=== PATIENT | female | born 1965 | race Caucasian/White ===

== ENCOUNTER → 2021-10-16 10:11 | Outpatient (BNVA) | payer SELFPAY | PROVIDERS: Visit Provider Nurse Practitioner | DX: J02.8 Acute pharyngitis due to other specified organisms (principal); B96.89 Other specified bacterial agents as the cause of diseases classified elsewhere | CPT/HCPCS: 87880 ==

== ENCOUNTER → 2021-11-11 10:44 | Outpatient (BNVA) | payer SELFPAY | PROVIDERS: Visit Provider Nurse Practitioner Family | DX: J02.8 Acute pharyngitis due to other specified organisms (principal); B96.89 Other specified bacterial agents as the cause of diseases classified elsewhere; J35.1 Hypertrophy of tonsils | CPT/HCPCS: 87071; 87880 ==

== ENCOUNTER → 2022-04-09 12:35 | Outpatient (BNVA) | payer MEDICAID, SELFPAY | PROVIDERS: PCP Physician Assistant; Visit Provider Registered Nurse Neonatal Intensive Care | DX: S82.842A Displaced bimalleolar fracture of left lower leg, initial encounter for closed fracture (principal); X58.XXXA Exposure to other specified factors, initial encounter | CPT/HCPCS: 73610 ==

== ENCOUNTER → 2022-04-12 13:32 | Outpatient (BNVA) | payer MEDICAID, SELFPAY | PROVIDERS: PCP Physician Assistant; Visit Provider Student in an Organized Health Care Education/Training Program | DX: S82.842A Displaced bimalleolar fracture of left lower leg, initial encounter for closed fracture (principal); W01.0XXA Fall on same level from slipping, tripping and stumbling without subsequent striking against object, initial encounter | CPT/HCPCS: 73610 ==

== ENCOUNTER 2022-04-18 08:11 | Day surgery (SDC) | payer MEDICAID, SELFPAY ==
[2022-04-17 09:35] VITALS: BMI 46.0
[2022-04-18] VITALS (16 sets, daily range): BP systolic 129–175; BP diastolic 76–113; PULSE 62–100; RESP 12–18; TEMP 36.1–36.8; O2SAT 94–100
--- NOTE | 2022-04-18 | SCC_ITS ---
Procedure done: Left distal fibula open reduction internal fixation Stress examination and interpretation of mini C arm fluoroscopic imaging 51 seconds of fluoroscopic guidance, for a cumulative dose of 1.07 mGy, was provided to Dr. Gunderson by the radiology department. C-arm images of the LEFT ankle were saved for the patient's permanent record. COMPAD
--- NOTE | 2022-04-18 07:01 | ANES.PREANE2 ---
Pre-Anesthetic Assessment Height/Weight: Height 1.68 m Weight 129.274 kg Preop Diagnosis: Left ankle fx Operation Date: 04/18/22 09:40 Proposed Procedures p LEFT ANKLE OPEN REDUCTION AND INTERNAL FIXATION WITH POSSIBLE SYNDESMOTIC FIXATION 20208, 88891,T14.8XXA(Left) - Aleksandr Gunderson DO Familial anesthetic complications: None Was Beta Jeanna taken within 24 hours: N/A Was Clonidine taken within 24 hours: N/A Social No alcohol and No tobacco Exam alert, oriented x 3, clear to auscultation bilaterally and regular rate & rhythm Airway Submandibular: within normal limits Cervical ROM: within normal limits Mallampati: Class II Dentition: full History/ROS No significant complaints Pulmonary None reported CV/HEM None reported None reported Hepatic None reported GI Gastroesophageal Reflux Disease (Well controlled ) Metabolic Morbid Obesity [facility] [place] None reported Left ankle fx Neuropsych None reported Anesthetic Plan ASA status: 2 Anesthesia: Anesthesia Evaluation, General and Regional (specify below) (Popliteal and adductor canal block for post op pain control ) Other: We discussed risk and benefits of general anesthesia including PONV, sore throat (sometimes severe), corneal abrasion, positioning and peripheral nerve injuries, life threatening allergic reaction, post operative ICU admission requiring prolonged intubation, stroke, heart attack, , and rare incidences of recall. Patient consents to proceed with general anesthesia. We discussed risk and benefits of nerve block for post op pain control including management of pain and titration of pain medications as signs/symptoms of nerve block wearing off begin to appear and/or prior bed. We discussed risk of failed nerve block, vascular injury or other vital structure injury, abscess/infection, LAST, and nerve injury. Plan general with popliteal block and adductor canal blocks for post op pain contro. Risk of > 500 ml blood loss (7ml/kg in children): No Medications/Allergies Home Medications Medication Instructions Recorded Confirmed Last Taken Type lisinopril 20 1 tab PO DAILY 04/17/22 04/17/22 Unknown History mg-hydrochlorothiazide 25 mg tablet Allergies Allergy/AdvReac Type Severity Reaction Status Date / Time ibuprofen Allergy Mild HIVES Verified 04/18/22 08:24 Penicillins Allergy ALGY-Rash Verified 04/18/22 08:24 [facility] Anesthesia Medical History Bimalleolar fracture of left ankle Social History Smoking and tobacco status: current every day smoker Data Anesthesia Cardiac Studies: No Data to Display
[2022-04-18] MEDS: sodium chloride 0.9% 1,000 ML 30 ML IV (08:47)
[2022-04-18] MEDS: acetaminophen 1,000 MG/100 ML PIGGYBACK 400 MG IV (08:48)
[2022-04-18] MEDS: fentaNYL 50 mcg/mL INJ 2mL IVP ×2 (09:05→11:25)
[2022-04-18] MEDS: clindamycin 600 MG/50 ML PREMIX 100 MG IV (09:44)
--- NOTE | 2022-04-18 09:45 | W.PM.OPSUD ---
Surgery/Procedure H&P Update DATE OF PROCEDURE: April 18, 2022 DATE H&P PERFORMED: 04/12/22 CHANGES TO PREVIOUS DOCUMENTATION: None PREOP DIAGNOSIS: Left bimalleolar ankle fracture PRIMARY INDICATION FOR PROCEDURE: Left bimalleolar ankle fracture PLANNED PROCEDURE: Operation Date: 04/18/22 09:40 Proposed Procedures p LEFT ANKLE OPEN REDUCTION AND INTERNAL FIXATION WITH POSSIBLE SYNDESMOTIC FIXATION 38662, [id number],T14.8XXA(Left) - Aleksandr Gunderson DO
--- NOTE | 2022-04-18 09:57 | ANES.PROC ---
Anesthesia Procedures Procedure/Date: 04/18/22 Nerve Block ^: Nerve Block 1: Main Anesthesia: general anesthesia Time Out Performed: Yes Consent: requested by attending/covering physician, from patient, risks and benefits reviewed and patient agrees to proceed Nerve block location: popliteal Anesthesia monitors applied: pulse oximetry, BP cuff and oxygen Nerve block position: semi sitting Anesthetic Used: ropivicaine 0.5% Amount of anesthesia used (mL): 20 Ultrasound used to: other (visualize and ID popliteal nerve) Nerve Stimulator Used?: No Interscalene/Femoral BLK: 4 stimuplex 21 g needle used for position and inplane approach, visualize local anesthetic spread and no vascular puncture identified Injection: neg aspiration of heme Patient Tolerated Procedure: well Complications: none Additional Comments: After time out sterile prep, using sterile technique, and using real time US guidance for target selection needle was inserted with real time visualization of needle entry and real time visualization of needle advancement toward intended target. Negative aspiration. LA injected incrementally with negative aspiration every 5 cc and real time US visualization of LA spread throughout procedure. Tolerated well. Image(s) saved. Nerve Block 2: Main Anesthesia: general anesthesia Time Out Performed: Yes Consent: requested by attending/covering physician, from patient and risks and benefits reviewed Nerve block location: adductor canal Anesthesia monitors applied: pulse oximetry, BP cuff and oxygen Anesthetic Used: ropivicaine 0.5% Amount of anesthesia used (mL): 14 Ultrasound used to: recognize landmarks and visualize and ID femerol nerve Nerve Stimulator Used?: No Interscalene/Femoral BLK: 4 stimuplex 21 g needle used for position and inplane approach, visualize local anesthetic spread and no vascular puncture identified Injection: neg aspiration of heme Patient Tolerated Procedure: well Complications: none Additional Comments: After time out sterile prep, using sterile technique, and using real time US guidance for target selection needle was inserted with real time visualization of needle entry and real time visualization of needle advancement toward intended target. Negative aspiration. LA injected incrementally with negative aspiration every 5 cc and real time US visualization of LA spread throughout procedure. Tolerated well. Image(s) saved.
--- NOTE | 2022-04-18 11:25 | PM.PACU ---
PACU note Narrative: Patient seen and evaluated in PACU. Toes are warm well perfused. Compartment soft compressible. Patient resting comfortably and pain controlled. DP pulse palpable. Rest of examination limited secondary to splint. Sensation intact to light touch to the toes. Patient wiggles toes. Exam: awake (See narrative for detailed exam) Disposition: discharged
--- NOTE | 2022-04-18 11:30 | P.OP_ITS ---
Brief Operative Note Date of procedure: 04/19/22 Pre-op diagnosis: Left bimalleolar ankle fracture Post-op diagnosis: same Procedure Done: Left distal fibula open reduction internal fixation Stress examination syndesmosis left ankle Interpretation of mini C-arm fluoroscopic imaging Surgeon: Aleksandr Gunderson Estimated blood loss (mL): 15 Complications: None Post-op Plan: Patient recover in PACU. Splint on and in place clean dry and intact. Patient will receive appropriate discharge directions as well as pain medication and DVT prophylaxis. Patient will follow-up in my office in 2 weeks. Keep splint on in place until follow-up. Condition: stable Disposition: same day Coding Level of Care Code Acute Supervisor Cell Efficiency for Mary Ellen Price
[2022-04-18] MEDS: HYDROcodone-acetaminophen 5-325 mg Tablet 1 TAB PO (12:24)
--- NOTE | 2022-04-18 14:07 | ANE.PACU2 ---
Inpatient post-anesthesia follow up: Airway intact: Yes Vital signs: Temperature 98.3 F Pulse Rate 67 Respiratory Rate 18 Blood Pressure 143/93 Pulse Oximetry 98 Oxygen Delivery Me thod Room Air Oxygen Flow Rate Fraction of Inspir ed Oxygen Hydration adequate: Yes Nausea and vomiting: No Pain level: 1 Mental status: Baseline
--- NOTE | 2022-04-19 06:34 | P.OP_ITS ---
Operative Report Date of procedure: April 19, 2022 Pre-op diagnosis: Preop Diagnosis Left ankle fx Post-op diagnosis: Left bimalleolar ankle fracture Post-op findings: Left bimalleolar ankle fracture see procedure note for details Procedure done: Left distal fibula open reduction internal fixation Stress examination and interpretation of mini C arm fluoroscopic imaging Implants: [place] lateral distal fibula plate 4 hole Nonlocking 3.5 screws x3 Locking 3.5 screws x4 Nonlocking 2.7 lag screw x1 Surgeon: Aleksandr Gunderson DO Estimated blood loss: 10 40 minutes IV fluids: See anesthesia record Complications: None Findings: See operative note Condition: stable Disposition: same day Brief History: Екатерина presents today as a pleasant 56-year-old female who sustained a left bimalleolar ankle fracture. She was seen and evaluated in the outpatient setting x-ray findings and exam consistent with preoperative diagnosis. She was stress examination in the office and found to have medial clear space widening. She does have a small avulsion of the medial malleolus as well as a displaced distal fibula fracture. Given her hip inherent instability of her ankle injury we discussed recommendations of left ankle open reduction internal fixation over closed treatment. At this point we had shared decision making about the risk benefits complications alternatives to each treatment choice as far as the risks with surgery which include make it better, make it worse, blood clot, infection, wound issues, painful hardware or further surgeries and with these understandings she agrees to proceed with surgical intervention. Consent was then obtained in office. Patient understands and agrees with current plan. All questions answered. Elects to proceed with surgery. Plan will be for left distal fibula open reduction internal fixation after this we will perform stress examination. Given the small bony fragment on the medial malleolus this does not appear to be fixable with any hardware and I feel this is more of a deltoid injury and possibly will ankle will only need ORIF of the distal fibula. However we will stress examine the left ankle after fixation to see if any further surgical intervention needed. Procedure: Patient seen evaluated in the preoperative suite. Consent was reviewed with patient. Correct extremity was then marked. Evaluated preoperative team. Seen by the anesthesia department once ready for surgery she was then taken back to the OR suite and placed on the OR table in supine position all bony prominences were well-padded a bump was placed under the ipsilateral hip. A nonsterile tourniquet applied to the left lower extremity. Patient underwent anesthesia per the anesthesia department. Once appropriately anesthetized patient's left lower extremity was then prepped and draped in standard orthopedic fashion. Final timeout performed. Patient received appropriate preoperative antibiotics Esmarch tourniquet was used exsanguinate the left lower extremity tourniquet inflated. A standard direct lateral incision centered over the fracture site a distal fibula was then made sharp scalpel through skin and subcutaneous tissue. Care to protect the superficial peroneal nerve. Once down to bone distally I then utilized an elevator along the distal fibula proximally with care to protect and not injure the SPN. Encountered fracture hematoma and fracture site of the distal fibula identified as a standard oblique fracture pattern that appeared likable with no significant areas of comminution. At this point a sharp scalpel excision was to identify the cortical edges and allowed an appropriate cortical leavitt for lag screw fixation. I did open book the fracture with a dental pick curette out any soft tissue interposition and subsequently utilized a reduction clamp to hold my reduction. Next I then placed a 2.7 mm lag screw in standard lag fashion from the anterior to posterior perpendicular fracture site. This was drilled measured appropriate length screw was placed with excellent purchase. Clamp was then removed and fracture was stable. Mini fluoroscopic C-arm was used throughout this case multiple orthogonal images showing anatomic reduction with methodist of fibular length and methodist of ankle mortise. Once her lag screw was then placed to utilize fluoroscopic C arm to select the appropriate length distal fibula locking plate. Selected a 4-hole Jose distal fibular anatomic locking plate. I then utilized olive wires to secure the plate to bone. First I started with a screw in the shaft just proximal to the fracture site to bring the plate to bone. This was appropriately drilled measured and appropriate length screw was then placed of fully threaded cortical screw. Next I then saw there was a small area of the distal fibula that was off the plate distally that was not brought down by the olive wire. I then drilled a unicortical fully threaded nonlocking screw to help compress the plate to bone. Care was made to not enter the lateral gutter with this cortical screw. This brought the plate to bone and I subsequently drilled and locked 3 locking screws around this. This completed my distal fixation. The distal olive wire was then subsequently removed. Next I then turned my attention proximally where I placed a single locking screw as well as my most proximal screw was drilled and placed a nonlocking screw. This secured me with 3 screws proximal to the fracture site as well as 4 screws distal to the fracture site with a lag screw creating a lag screw with neutralization plate technique. Final x-rays were then taken of AP ankle mortise as well as lateral showing appropriate anatomic reduction of the distal fibula fracture with excellent fixation. I then again held in ankle mortise view with mini C arm and then subsequently performed a cotton test as well as a external stress test. No evidence of medial clear space widening. The small frankie of medial malleolus that was noted did not have enough bone stock for fixation and did not aid in the ankle stability. As a result decision was made to leave this alone as the ankle was stable after stress test. Tourniquet was then deflated. Wound bed was thoroughly irrigated hemostasis adequate with electrocautery and pressure. Deep 2-0 Vicryl sutures were brought to bring fascia over the plate as well as then a running 2-0 Vicryl stitch and jessica for skin. Xeroform covered the incision 4 x 4's ABDs soft roll and a short leg posterior splint was then placed to the left lower extremity. Patient tolerated procedure without complications. She was awakened from anesthesia and taken to PACU in stable condition Position: Patient should be nonweightbearing to left lower extremity keep splint on in place until follow-up. Follow-up in 2 weeks. Given appropriate discharge instructions as well as pain medication. Patient does have allergy to aspirin we will give her a daily dose of Lovenox for DVT prophylaxis. Patient understands agrees current plan. All questions answered. She understands she has any questions he can contact the office. She will follow-up with me in 2 weeks.
== END 2022-04-18 12:42 | disposition home or self-care (01) ==
PROVIDERS: PCP Physician Assistant; Visit Provider Student in an Organized Health Care Education/Training Program
PROC: (CPT 27792; principal; 2022-04-18 09:30)
DX: S82.842A Displaced bimalleolar fracture of left lower leg, initial encounter for closed fracture (principal); K21.9 Gastro-esophageal reflux disease without esophagitis; F17.200 Nicotine dependence, unspecified, uncomplicated; E66.01 Morbid (severe) obesity due to excess calories; Z68.42 Body mass index [BMI] 45.0-49.9, adult; W01.0XXA Fall on same level from slipping, tripping and stumbling without subsequent striking against object, initial encounter; Z88.0 Allergy status to penicillin
CPT/HCPCS: 27792; 76000; C1713; J2704; J2795; J3010; J3490; J7030

== ENCOUNTER → 2022-05-07 10:18 | Outpatient (BNVA) | payer MEDICAID, SELFPAY | PROVIDERS: PCP Physician Assistant; Visit Provider Student in an Organized Health Care Education/Training Program | DX: S82.842A Displaced bimalleolar fracture of left lower leg, initial encounter for closed fracture (principal) | CPT/HCPCS: 73610; 99024 ==

== ENCOUNTER → 2022-06-04 10:05 | Outpatient (BNVA) | payer MEDICAID, SELFPAY | PROVIDERS: PCP Physician Assistant; Visit Provider Student in an Organized Health Care Education/Training Program | DX: T81.49XA Infection following a procedure, other surgical site, initial encounter (principal); S82.842D Displaced bimalleolar fracture of left lower leg, subsequent encounter for closed fracture with routine healing; W19.XXXD Unspecified fall, subsequent encounter | CPT/HCPCS: 73610; 99024 ==

== ENCOUNTER 2022-06-04 12:00 | Outpatient (CLI) | payer MEDICAID, SELFPAY | END 2022-06-04 12:01 | disposition home or self-care (01) | LOC: SPT 12:01 | PROVIDERS: PCP Physician Assistant; Visit Provider Student in an Organized Health Care Education/Training Program | DX: Z46.89 Encounter for fitting and adjustment of other specified devices (principal); S82.842D Displaced bimalleolar fracture of left lower leg, subsequent encounter for closed fracture with routine healing; X58.XXXD Exposure to other specified factors, subsequent encounter | CPT/HCPCS: 97760; 99024; L1902 ==

== ENCOUNTER → 2022-07-02 09:38 | Outpatient (BNVA) | payer MEDICAID, SELFPAY | PROVIDERS: PCP Physician Assistant; Visit Provider Student in an Organized Health Care Education/Training Program | DX: S82.842D Displaced bimalleolar fracture of left lower leg, subsequent encounter for closed fracture with routine healing (principal); X58.XXXD Exposure to other specified factors, subsequent encounter; L97.321 Non-pressure chronic ulcer of left ankle limited to breakdown of skin | CPT/HCPCS: 73610 ==

== ENCOUNTER → 2022-08-13 14:30 | Outpatient (BNVA) | payer MEDICAID, SELFPAY | PROVIDERS: PCP Physician Assistant; Visit Provider Student in an Organized Health Care Education/Training Program | DX: S99.922A Unspecified injury of left foot, initial encounter (principal); S82.842A Displaced bimalleolar fracture of left lower leg, initial encounter for closed fracture; T81.49XA Infection following a procedure, other surgical site, initial encounter; Y83.8 Other surgical procedures as the cause of abnormal reaction of the patient, or of later complication, without mention of misadventure at the time of the procedure | CPT/HCPCS: 73610 ==

== ENCOUNTER 2023-04-17 13:46 | Outpatient (CLI) | payer MEDICAID, SELFPAY ==
--- NOTE | 2023-04-17 13:50 | MM_ITS ---
WS: [id number] BILATERAL 3D TOMOSYNTHESIS DIGITAL SCREENING MAMMOGRAPHY WITH CAD CLINICAL INFORMATION: SCREENING HISTORY: Screening mammogram. No current complaints. COMPARISON: 2007 TECHNIQUE: Bilateral CC and MLO views. FINDINGS: Scattered fibroglandular densities bilaterally. No suspicious focal mass, asymmetry, calcifications, or architectural distortion. No evidence of malignancy. Lucent centered calcification RIGHT breast. A few tiny incidental clustered calcifications lower inner quadrants. IMPRESSION: MM/[place] [id number] BI-RADS: 2-Benign FOLLOW UP: 1 Year Follow-up Recommend return to annual screening mammography.
== END 2023-04-17 13:47 | disposition home or self-care (01) ==
PROVIDERS: PCP Physician Assistant; Visit Provider Physician Assistant
DX: Z12.31 Encounter for screening mammogram for malignant neoplasm of breast (principal)
CPT/HCPCS: 77063; 77067

== ENCOUNTER 2024-04-20 08:30 | Outpatient (CLI) | payer MEDICAID, SELFPAY ==
--- NOTE | 2024-04-20 08:47 | MM_ITS ---
WS: [id number] BILATERAL SCREENING DIGITAL TOMOSYNTHESIS MAMMOGRAM WITH CAD HISTORY: SCREENING COMPARISON: 04/17/2023, 04/21/2008 Bilateral CC and MLO views with tomosynthesis and synthetic mammography submitted. Computer aided det ection analyzed. Breast composition: The breasts are almost entirely fatty. No suspicious masses, microcalcifications or architectural distortion. Benign calcifications in each breast. MM/MM scr BI tomosynthesis [id number] IMPRESSION: BI-RADS: 2 - Benign. FOLLOW UP: 1 Year Follow-up
== END 2024-04-20 08:37 | disposition home or self-care (01) ==
PROVIDERS: PCP Physician Assistant; Visit Provider Physician Assistant
DX: Z12.31 Encounter for screening mammogram for malignant neoplasm of breast (principal); R92.333 Mammographic heterogeneous density, bilateral breasts; R92.1 Mammographic calcification found on diagnostic imaging of breast
CPT/HCPCS: 77063; 77067

== ENCOUNTER 2025-04-21 08:08 | Outpatient (CLI) | payer MEDICAID, SELFPAY ==
--- NOTE | 2025-04-21 08:13 | MM_ITS ---
WS: [id number] BILATERAL SCREENING DIGITAL TOMOSYNTHESIS MAMMOGRAM WITH CAD HISTORY: SCREENING COMPARISON: 04/20/2024, 04/17/2023 Bilateral CC and MLO views with tomosynthesis and synthetic mammography submitted. Computer aided detection analyzed. Breast composition: The breasts are almost entirely fatty. No suspicious masses, microcalcifications or architectural distortion. Benign calcifications in each breast. MM/MM scr BI tomosynthesis [id number] IMPRESSION: BI-RADS: 2 - Benign. FOLLOW UP: 1 Year Follow-up
== END 2025-04-21 08:09 | disposition home or self-care (01) ==
LOC: RAD 08:08
PROVIDERS: PCP Physician Assistant; Visit Provider Physician Assistant
DX: Z12.31 Encounter for screening mammogram for malignant neoplasm of breast (principal); R92.313 Mammographic fatty tissue density, bilateral breasts
CPT/HCPCS: 77063; 77067